=== PATIENT | female | born 1985 | race Caucasian/White ===

== ENCOUNTER 2017-02-28 10:21 | Emergency (ER) | payer SELFPAY ==
[2017-02-28 10:28] VITALS: RESP 14; O2SAT 98
--- NOTE | 2017-02-28 10:46 | EDPHY ---
H & P Stated Complaint: SOB, leg swelling Time Seen by Provider: 02/28/17 10:23 HPI/ROS: CHIEF COMPLAINT: Sore throat, cough, dyspnea HISTORY OF PRESENT ILLNESS: The patient presents to the ED with a one-week history of sore throat, cough and a 2 day history of intermittent dyspnea. The patient reportedly had a rash to her bilateral lower extremities. She had had some complaints of bilateral calf pain without swelling. She was seen at urgent care referred to the ED for further evaluation. The patient states that her dyspnea is mild. Her chief complaint is sore throat. The patient denies pleuritic chest pain. She denies asymmetric calf pain or swelling. She denies prior history of PE or DVT. She denies family history of PE or DVT. The patient is on oral contraceptives. REVIEW OF SYSTEMS: A comprehensive 10 point review of systems is otherwise negative aside from elements mentioned in the history of present illness. Source: Patient Exam Limitations: No limitations - Personal History LMP (Females 10-55): Over 28 Days Ago Current Tetanus Diphtheria and Acellular Pertussis (TDAP): Yes - Medical/Surgical History Hx Asthma: No Hx Chronic Respiratory Disease: No Hx Diabetes: No Hx Cardiac Disease: No Hx Renal Disease: No Hx Cirrhosis: No Hx Alcoholism: No Hx HIV/AIDS: No Hx Splenectomy or Spleen Trauma: No - Social History Smoking Status: Never smoked - Physical Exam Exam: General Appearance: Alert, no distress Eyes: Pupils equal and round no pallor or injection ENT, Mouth: Mild pharyngeal erythema without exudate, peritonsillar mass or swelling Respiratory: There are no retractions, lungs are clear to auscultation Cardiovascular: Regular rate and rhythm Gastrointestinal: Abdomen is soft and nontender, no masses, bowel sounds normal Neurological: A&O, normal motor function, normal sensory exam, normal cranial nerves Skin: Warm and dry, no rashes Musculoskeletal: Neck is supple nontender Extremities: No asymmetric calf pain or swelling appreciated Constitutional: Initial Vital Signs Temperature (C) 36.9 C 02/28/17 10:26 Heart Rate 88 02/28/17 10:26 Respiratory Rate 14 02/28/17 10:26 Blood Pressure 147/88 H 02/28/17 10:26 O2 Sat (%) 98 02/28/17 10:26 O2 Delivery Mode Room Air Allergies/Adverse Reactions: No Known Allergies Allergy (Unverified 02/28/17 10:28) Home Medications: Medication Instructions Recorded Albuterol [Ventolin Hfa Inhaler] 2 puffs IH QID PRN #1 mdi 02/28/17 Medical Decision Making - Diagnostics Imaging Results: Imaging Impressions Chest X-Ray 02/28/17 10:44 Impression: No acute findings in the chest. ED Course/Re-evaluation: The patient presents to the ED for evaluation of sore throat and cough with mild dyspnea. The patient's strep test is negative. The patient's chest x-ray demonstrates no evidence of an obvious pneumonia. The patient's D-dimer test is negative which I feel adequately excludes pulmonary embolism in this low risk by Wells criteria patient. The patient is observed to have stable vital signs in the emergency department. She will be advised to use Tylenol and ibuprofen as needed for pain. She is given a prescription for an albuterol inhaler for possible bronchitis. The patient is advised to return to the emergency department for markedly worsening symptoms or other concerns. Differential Diagnosis: Differential diagnosis considered includes asthma, bronchitis, pneumonia, pulmonary embolism, streptococcal pharyngitis - Data Points Laboratory Results: Laboratory Results 02/28/17 10:40 02/28/17 10:40 02/28/17 02/28/17 02/28/17 Unknown Unknown 11:10 WBC RBC Hgb Hct MCV MCH MCHC RDW Plt Count MPV Neut % (Auto) Lymph % (Auto) [place] % (Auto) Eos % (Auto) Baso % (Auto) Nucleat RBC Rel Count Absolute Neuts (auto) Absolute Lymphs (auto) Absolute Monos (auto) Absolute Eos (auto) Absolute Basos (auto) Absolute Nucleated RBC Immature Gran % Immature Gran # D-Dimer 0.29 ug/mLFEU ug/mLFEU (0.00-0.50) Sodium Potassium Chloride Carbon Dioxide Anion Gap BUN Creatinine Estimated GFR Glucose Calcium Troponin I Beta HCG, Qual Group A Strep Screen NEGATIVE (NEGATIVE) Group A Strep DNA Pending 02/28/17 02/28/17 02/28/17 10:40 10:40 10:40 WBC RBC Hgb Hct MCV MCH MCHC RDW Plt Count MPV Neut % (Auto) Lymph % (Auto) [place] % (Auto) Eos % (Auto) Baso % (Auto) Nucleat RBC Rel Count Absolute Neuts (auto) Absolute Lymphs (auto) Absolute Monos (auto) Absolute Eos (auto) Absolute Basos (auto) Absolute Nucleated RBC Immature Gran % Immature Gran # D-Dimer REJ Sodium 139 mEq/L mEq/L (134-144) Potassium 4.7 mEq/L mEq/L (3.5-5.2) Chloride 107 mEq/L mEq/L (97-110) Carbon Dioxide 20 mEq/l L mEq/l (22-31) Anion Gap 12 mEq/L mEq/L (8-16) BUN 11 mg/dL mg/dL (7-23) Creatinine 0.7 mg/dL mg/dL (0.6-1.0) Estimated GFR > 60 Glucose 81 mg/dL mg/dL (70-100) Calcium 9.4 mg/dL mg/dL (8.5-10.4) Troponin I < 0.012 ng/mL ng/mL (0.000-0.034) Beta HCG, Qual NEGATIVE Group A Strep Screen Group A Strep DNA 02/28/17 10:40 WBC 9.78 10^3/uL H 10^3/uL (3.80-9.50) RBC 4.82 10^6/uL 10^6/uL (4.18-5.33) Hgb 14.7 g/dL g/dL (12.6-16.3) Hct 43.4 % % (38.0-47.0) MCV 90.0 fL fL (81.5-99.8) MCH 30.5 pg pg (27.9-34.1) MCHC 33.9 g/dL g/dL (32.4-36.7) RDW 12.0 % % (11.5-15.2) Plt Count 279 10^3/uL 10^3/uL (150-400) MPV 10.7 fL fL (8.7-11.7) Neut % (Auto) 70.7 % % (39.3-74.2) Lymph % (Auto) 18.6 % % (15.0-45.0) [place] % (Auto) 7.0 % % (4.5-13.0) Eos % (Auto) 3.1 % % (0.6-7.6) Baso % (Auto) 0.3 % % (0.3-1.7) Nucleat RBC Rel Count 0.0 % % (0.0-0.2) Absolute Neuts (auto) 6.92 10^3/uL H 10^3/uL (1.70-6.50) Absolute Lymphs (auto) 1.82 10^3/uL 10^3/uL (1.00-3.00) Absolute Monos (auto) 0.68 10^3/uL 10^3/uL (0.30-0.80) Absolute Eos (auto) 0.30 10^3/uL 10^3/uL (0.03-0.40) Absolute Basos (auto) 0.03 10^3/uL 10^3/uL (0.02-0.10) Absolute Nucleated RBC 0.00 10^3/uL 10^3/uL (0-0.01) Immature Gran % 0.3 % % (0.0-1.1) Immature Gran # 0.03 10^3/uL 10^3/uL (0.00-0.10) D-Dimer Sodium Potassium Chloride Carbon Dioxide Anion Gap BUN Creatinine Estimated GFR Glucose Calcium Troponin I Beta HCG, Qual Group A Strep Screen Group A Strep DNA Departure - Departure Disposition: Home, Routine, Self-Care Clinical Impression: Acute bronchitis Condition: Good Instructions: Acute Bronchitis (ED) Additional Instructions: 1. Please use albuterol inhaler as needed for cough and shortness of breath. 2. Tylenol and ibuprofen as needed for pain. 3. Your strep test demonstrates no evidence of an obvious bacterial infection. 4. Please return to the emergency department for markedly worsening symptoms or other concerns. 5. You have been given the contact number of our on-call primary care provider if you wish to establish primary care. Referrals: Magaly Young MD [[facility] [place]] - As per Instructions
[2017-02-28 10:58] LABS: % IMMATURE GRANULYOCYTES 0.3 % (0.0-1.1); ABSOLUTE IMMATURE GRANULOCYTES 0.03 10^3/uL (0.00-0.10); ADD DIFF? NO; ADD MORPH? NO; ADD SCAN? NO; ATYPICAL LYMPHOCYTE FLAG 0 (0-99); FRAGMENT RBC FLAG 0 (0-99); HEMATOCRIT 43.4 % (38.0-47.0); HEMOGLOBIN 14.7 g/dL (12.6-16.3); LEFT SHIFT FLG 0 (0-99); LIPEMIA HEMOLYSIS FLAG 90 (0-99); MEAN CELL HEMOGLOBIN 30.5 pg (27.9-34.1); MEAN CELL HEMOGLOBIN CONCENTR. 33.9 g/dL (32.4-36.7); MEAN PLATELET VOLUME 10.7 fL (8.7-11.7); PLATELET CLUMPS FLAG 30 (0-99); PLATELET COUNT 279 10^3/uL (150-400); RED BLOOD CELL COUNT 4.82 10^6/uL (4.18-5.33)
--- NOTE | 2017-02-28 11:11 | CPEKG ---
Heart Rate: 84 RR Interval: 714 P-R Interval: 128 QRSD Interval: 88 QT Interval: 372 QTC Interval: 440 P [place]: 67 QRS [place]: 67 T Wave [place]: 20 EKG Severity - NORMAL ECG - EKG Impression: SINUS RHYTHM Electronically Signed By: Torsten Sorenson 28-Feb-2017 13:26:53
[2017-02-28 11:15] LABS: ANION GAP 12 mEq/L (8-16); CALCIUM 9.4 mg/dL (8.5-10.4); CARBON DIOXIDE 20 mEq/l (22-31); CHLORIDE 107 mEq/L (97-110); CREATININE 0.7 mg/dL (0.6-1.0); GLOMERULAR FILTRATION RATE > 60; GLUCOSE 81 mg/dL (70-100); POTASSIUM 4.7 mEq/L (3.5-5.2); SODIUM 139 mEq/L (134-144)
[2017-02-28 11:26] LABS: TROPONIN I < 0.012 ng/mL (0.000-0.034)
[2017-02-28 12:43] VITALS: BP 134/77; PULSE 94; TEMP 98.6
== END 2017-02-28 12:42 | disposition home or self-care (01) ==
DX: J20.9 Acute bronchitis, unspecified (principal)